=== PATIENT | male | born 1970 | race Caucasian/White ===

== ENCOUNTER 2024-01-21 07:25 | Emergency (ER) | payer OTHER ==
[2024-01-21 07:48] VITALS: BMI 33.2
[2024-01-21 08:44] VITALS: RESP 18
[2024-01-21] MEDS ORDERED: ACETAMINOPHEN INJECTION 100 ML IVPB ONE (09:13)
[2024-01-21] MEDS ORDERED: ONDANSETRON 4 MG/2 ML VIAL ONE (09:13)
[2024-01-21] MEDS: SODIUM CHLORIDE 1,000 ML IV STA (09:42)
[2024-01-21] MEDS: ACETAMINOPHEN 500 MG TABLET (FP) PO ONE (09:42)
[2024-01-21] MEDS: ONDANSETRON 4 MG/2 ML VIAL IVPUSH ONE (09:43)
[2024-01-21 09:46] LABS: EOS % 6.1 % (0-4.5); HEMATOCRIT 44.4 % (35.4-49); HEMOGLOBIN 15.4 GM/dL (11.7-16.9); LYMPH % 38.4 % (8-40); MCH 30.4 pg (25.7-33.7); MCHC 34.7 g/dl (32.0-35.9); MEAN CELL VOLUME 87.8 fl (80-96); MEAN PLT VOLUME 10.2 fl (7.5-11.1); MONO % 9.3 % (3.8-10.2); NEUT % 45.2 % (42.8-82.8); PLATELET COUNT 143 10^3/uL (134-434); RBC 5.06 M/mm3 (4.00-5.60); WHITE BLOOD COUNT 4.9 K/mm3 (4.0-10.0)
[2024-01-21 10:11] LABS: POTASSIUM 3.9 mmol/L (3.5-5.1)
[2024-01-21 10:15] LABS: CALCIUM 9.1 mg/dL (8.5-10.1)
[2024-01-21 10:16] LABS: ALBUMIN 3.6 g/dl (3.4-5.0)
[2024-01-21 10:19] LABS: CREATININE 1.1 mg/dL (0.55-1.3)
[2024-01-21 10:21] LABS: BILIRUBIN,TOTAL 0.6 mg/dL (0.2-1); TOT PROT 7.1 g/dl (6.4-8.2)
[2024-01-21 12:25] VITALS: BP 124/74; PULSE 68; TEMP 98.4
== END 2024-01-21 12:34 | disposition home or self-care (01) ==
LOC: JER 07:25
PROC: 3E033GC Introduction of Other Therapeutic Substance into Peripheral Vein, Percutaneous Approach (ICD-10-PCS; principal; 2024-01-21)
PROC: 3E0337Z Introduction of Electrolytic and Water Balance Substance into Peripheral Vein, Percutaneous Approach (ICD-10-PCS; 2024-01-21)
DX: R51.9 Headache, unspecified (principal); R10.84 Generalized abdominal pain; R42 Dizziness and giddiness; R11.2 Nausea with vomiting, unspecified; R05.3 Chronic cough; Z20.822 Contact with and (suspected) exposure to COVID-19
CPT/HCPCS: 0241U-QW; 36415; 71046-TC-FY; 80053; 85025; 99284-25

== ENCOUNTER 2024-10-16 06:42 | Emergency (ER) | payer OTHER ==
[2024-10-16 06:49] VITALS: BP 137/88; PULSE 78; RESP 18; TEMP 97.9; BMI 31.3
[2024-10-16] MEDS ORDERED: MECLIZINE HCL 25 MG TABLET (FP) ONE (07:51)
[2024-10-16] MEDS ORDERED: ACETAMINOPHEN INJECTION 100 ML ONE (07:51)
[2024-10-16] MEDS: SODIUM CHLORIDE 0.9% 500 ML INFUS.BAG IV ONE (08:12)
[2024-10-16] MEDS: MECLIZINE HCL 25 MG TABLET (FP) PO ONE (08:12)
[2024-10-16] MEDS: ACETAMINOPHEN 1000 MG/100 ML BAG IVPB ONE (08:12)
[2024-10-16 08:36] LABS: POTASSIUM 3.9 mmol/L (3.5-5.1)
[2024-10-16 08:37] LABS: CALCIUM 9.5 mg/dL (8.5-10.1)
[2024-10-16 08:38] LABS: ALBUMIN 3.8 g/dl (3.4-5.0); BLOOD UREA NITROGEN 21.8 mg/dL (7-18); MAGNESIUM 2.2 mg/dL (1.8-2.4)
[2024-10-16 08:40] LABS: INR 0.94 (0.83-1.09); PROTHROMBIN TIME (PATIENT) 10.6 SEC (9.7-13.0)
[2024-10-16 08:43] LABS: ACTIVATED PTT 32.2 SECONDS (25.2-36.5); BILIRUBIN,TOTAL 0.4 mg/dL (0.2-1); TOT PROT 7.2 g/dl (6.4-8.2)
[2024-10-16 08:53] LABS: BASO % 0.8 % (0-2.0); EOS % 4.1 % (0-4.5); HEMATOCRIT 43.5 % (35.4-49); HEMOGLOBIN 14.6 GM/dL (11.7-16.9); LYMPH % 25.4 % (8-40); MCH 30.2 pg (25.7-33.7); MCHC 33.6 g/dl (32.0-35.9); MEAN CELL VOLUME 89.9 fl (80-96); MEAN PLT VOLUME 9.9 fl (7.5-11.1); MONO % 8.3 % (3.8-10.2); NEUT % 61.4 % (42.8-82.8); PLATELET COUNT 141 10^3/uL (134-434); RBC 4.84 M/mm3 (4.00-5.60); WHITE BLOOD COUNT 6.1 K/mm3 (4.0-10.0)
== END 2024-10-16 11:55 | disposition home or self-care (01) ==
LOC: JER 06:42
PROC: 3E033NZ Introduction of Analgesics, Hypnotics, Sedatives into Peripheral Vein, Percutaneous Approach (ICD-10-PCS; principal; 2024-10-16)
DX: R42 Dizziness and giddiness (principal); R51.9 Headache, unspecified; R04.0 Epistaxis; Z20.822 Contact with and (suspected) exposure to COVID-19
CPT/HCPCS: 0241U-QW; 36415; 70450-TC; 80053; 83735; 85025; 85610; 85730; 93005; 93010; 99285-25; J0131